=== PATIENT | male | born 1965 | race Caucasian/White ===

== ENCOUNTER 2016-11-25 15:00 | Inpatient (IN) | payer OTHER ==
--- NOTE | ~2016-11-25 | PN ---
Unit #: [id number] #: [id number] Patient: AMEYA SANCHEZ [id number] [facility] [address] [place] [address] [id number] MR#: [id number] NAME: AMEYA SANCHEZ ROOM: P185 Age: 51 Sex: M Admission Date: 11/25/2016 : 1965 Attending Physician: Raymon Lucas M.D. Admitting Physician: Raymon Lucas M.D. Primary Care Physician: Jarod Reynolds PROGRESS NOTES DATE OF SERVICE: 11/28/2016 SUBJECTIVE Mr. Sanchez is a 51-year-old white male, who was seen today and chart was reviewed and the case was discussed with the staff. He reports doing fairly well and appears to be coming out of the detox and also reports improvement in his depression and reports that he has an appointment with a heart doctor tomorrow that he would like to keep and he would like to consider discharge tomorrow. MENTAL STATUS EXAMINATION Middle-aged white male, who was casually dressed with fair personal hygiene, appears to be in no distress or discomfort. He was awake and alert on interaction with intact orientation. His mood was anxious with a congruent affect. He denies any suicidal or homicidal ideation. His insight and judgment remain slightly impaired. TREATMENT PLAN 1. We will continue him on his current medications and treatment protocol. We will monitor his response to the medications and make further adjustments as needed. 2. We will continue to follow up. Dictated by... Jarod Burciaga/mann TD: 11/28/2016 13:02 JOB #: [id number] [facility] PROGRESS NOTES Page 1 of 1 X Raymon Lucas MD PROGRESS NOTE
--- NOTE | ~2016-11-25 | HP ---
Unit #: [id number] #: [id number] Patient: AMEYA SANCHEZ [id number] [place] [address] [id number] MR#: [id number] NAME: AMEYA SANCHEZ ROOM: P185 Age: 51 Sex: M Admission Date: 11/25/2016 : 1965 Attending Physician: Raymon Lucas M.D. Admitting Physician: Raymon Lucas M.D. Primary Care Physician: Ameya Anaya M.D. HISTORY AND PHYSICAL HISTORY OF PRESENT ILLNESS Ameya is a 51-year-old male admitted on 11/25/2016 to [facility] for depression and psychosis. PAST MEDICAL HISTORY 1. Hypertension. 2. Chronic back pain. 3. Degenerative disk disease. 4. Hyperlipidemia. 5. Seasonal allergies. 6. GERD. PAST SURGICAL HISTORY History of appendectomy and a cyst removed from his neck. SOCIAL HISTORY Half pack cigarettes daily. Occasional alcohol use and occasional marijuana use. He is currently single and homeless. FAMILY HISTORY Noncontributory. REVIEW OF SYSTEMS CONSTITUTIONAL: No fever or chills. HEENT: Denies any sore throat, ear pain or runny nose. CARDIOVASCULAR: Denies chest pain, irregular heart rhythm or palpitations. CHEST: Denies shortness of breath or cough. No hemoptysis. GASTROINTESTINAL: Denies nausea, vomiting, diarrhea or chronic constipation. ENDOCRINE: Denies history of increased thirst or urination. No recent significant weight loss or gain. GENITOURINARY: Denies dysuria, frequency, or hematuria. SKIN: Denies any rashes. HEMATOLOGIC: Denies history of increased bleeding or bruising. MUSCULOSKELETAL: Denies any hot, swollen joints. No generalized muscle pain. NEUROLOGIC: Denies problems with vision or speech. No frequent, severe headaches. No numbness, tingling or weakness in any extremities. Denies loss of bladder or bowel control. CURRENT MEDICATIONS Unit #: [id number] #: [id number] Patient: AMEYA SANCHEZ 1. Fenofibrate. 2. Flomax. 3. Simvastatin. 4. Loratadine. 5. Vitamin D. 6. Omeprazole. 7. Aspirin. 8. Seroquel. ALLERGIES Ibuprofen. PHYSICAL EXAMINATION GENERAL: Alert, oriented, no acute distress. VITAL SIGNS: Blood pressure 152/94, heart rate 85, respirations 18, and temperature 98.5. HEIGHT: 5 feet 4 inches WEIGHT: 130 pounds. SKIN: Warm, dry. No rashes or lesions, track baeza, cuts, etc. HEENT: Normocephalic. TMs not viewed. Oronasal passages clear. Conjunctivae clear. PERRLA. EOM is intact. NECK: No lymphadenopathy or thyromegaly. HEART: Regular rate and rhythm. No murmur, gallop, or rub. LUNGS: Clear to auscultation bilaterally. ABDOMEN: Soft, nontender without palpable masses or hepatosplenomegaly. : Not assessed. EXTREMITIES: No evidence of cyanosis, clubbing, or edema. Moves all extremities independently without obvious deficit. NEUROLOGICAL: Grossly within normal limits. Cranial Nerves: II: Visual barrera are intact. III, IV AND : Extraocular movements are intact. Pupils are equal, round and reactive to light. V: Facial sensation is grossly normal. VII: Facial movements and expression are normal. VIII: Auditory acuity grossly intact. IX, X: Uvula is midline. Phonation is normal. XI: Patient shrugs shoulders and turns head normally. XII: Tongue protrudes in the midline. Sensory and Motor Function: Sensory and motor sensation is grossly normal. Motor: moves all extremities well. Coordination: Gait is normal. Deep Tendon Reflexes: Intact. IMPRESSION 1. Psychiatric admission. 2. Hypertension. 3. Chronic back pain. 4. Degenerative disk disease. 5. Hyperlipidemia. 6. Seasonal allergies. RECOMMENDATIONS PSYCHIATRIC: Per psychiatrist. MEDICAL: No contraindication to participating in this facility's activities. MEDICAL PROGNOSIS Good. MEDICAL CONDITION Stable. Unit #: [id number] #: [id number] Patient: AMEYA SANCHEZ Dictated by... Amy Landa TD: 11/26/2016 15:19 JOB #: [id number] HISTORY AND PHYSICAL Page 1 of 1 X ERICK GONZALEZ APRN HISTORY AND PHYSICAL
--- NOTE | ~2016-11-25 | PN ---
Unit #: [id number] #: [id number] Patient: AMEYA SANCHEZ [id number] [facility] [address] [place] [address] [id number] I MR#: [id number] NAME: AMEYA SANCHEZ ROOM: P185 Age: 51 Sex: M Admission Date: 11/25/2016 : 1965 Attending Physician: Raymon Lucas M.D. Admitting Physician: Raymon Lucas M.D. Primary Care Physician: Jarod Reynolds PROGRESS NOTES DATE OF SERVICE: 11/26/2016 SUBJECTIVE Mr. Sanchez is a 51-year-old white male, who was seen today and chart was reviewed and the case was discussed with the staff. He was seen to be anxious and withdrawn and in distress and discomfort and reports persistent depressive symptoms. Meanwhile, he has not shown any agitation or aggression. He has been taking the medications and tolerating them fairly well. MENTAL STATUS EXAMINATION Middle-aged white male, who was casually dressed with marginal personal hygiene, appears to be in distress and discomfort. He was awake and alert on interaction with intact orientation. His mood was anxious with a congruent affect. He denies any suicidal or homicidal ideation. His insight and judgment remain slightly impaired. TREATMENT PLAN 1. We will continue him on his current medications and treatment protocol. We will monitor his response to the medications and make further adjustments as needed. 2. We will continue to follow up. Dictated by... Jarod Burciaga/mann TD: 11/27/2016 18:21 JOB #: [id number] [facility] PROGRESS NOTES Page 1 of 1 X Raymon Lucas MD PROGRESS NOTE
--- NOTE | ~2016-11-25 | DS ---
Unit #: [id number] #: [id number] [facility]: [facility] [id number] [facility] [address] [place] [address] [id number] I MR#: [id number] NAME: AMEYA SANCHEZ ROOM: [facility] Age: 51 Sex: M Admission Date: 11/25/2016 : 1965 Discharge Date: 11/29/2016 Attending Physician: Raymon Lucas M.D. Primary Care Physician: Ameya Anaya M.D. DISCHARGE SUMMARY IDENTIFYING DATA Mr. Sanchez is a 51-year-old white male who is a resident of [place], [place], and was self-referred to the hospital accompanied by his mother. DISCHARGE DIAGNOSES Psychiatric: Major depressive disorder, recurrent, moderate, with psychosis; alcohol dependence, moderate and acute withdrawals. Medical: Hypertension, dyslipidemia, and gastroesophageal reflux disease. Stressors: Moderate psychosocial stressors. HISTORY OF PRESENT ILLNESS Please see initial psychiatric evaluation for details. PAST PSYCHIATRIC HISTORY Please see initial psychiatric evaluation for details. PAST MEDICAL HISTORY Please see initial psychiatric evaluation for details. HOSPITAL COURSE The patient was admitted to the adult chemical dependency unit at [facility] and was oriented to the hospital environment. Routine p.r.n. medications were initiated, and he was started on the detox protocol and was also started back on his home medications including Celexa and Seroquel, and was closely monitored. He was taking the medications regularly and was tolerating them fairly well and was able to show a decent and therapeutic response, and was able to come out of the detox without any complications and was willing to continue treatment on an outpatient basis and as such, it was decided that he will be kept on his current medications and will be discharged home, and will continue treatment on an outpatient basis. DISCHARGE MEDICATIONS Celexa 20 mg a day for depression and Seroquel 100 mg at bedtime for depression. DISCHARGE CONDITION Stable. PROGNOSIS Fair. Unit #: [id number] #: [id number] Patient: AMEYA SANCHEZ Dictated by... Jarod Burciaga/maryl TD: 11/29/2016 18:51 JOB #: [id number] DISCHARGE SUMMARY Page 1 of 1 X Raymon Lucas MD DISCHARGE SUMMARY
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
--- NOTE | ~2016-11-25 | PN ---
Unit #: [id number] #: [id number] Patient: AMEYA SANCHEZ [id number] [facility] [address] [place] [address] [id number] I MR#: [id number] NAME: AMEYA SANCHZE ROOM: [facility] Age: 51 Sex: M Admission Date: 11/25/2016 : 1965 Attending Physician: Raymon Lucas M.D. Admitting Physician: Raymon Lucas M.D. Primary Care Physician: Jarod Reynolds PROGRESS NOTES DATE 11/27/2016 DISCUSSION mood disorder was seen today and chart was reviewed and case was discussed with the staff. The patient seemed to be anxious, withdrawn, unkempt, disheveled and seclusive to himself. Meanwhile, he has been cooperative with the treatment recommendations. He has been taking the medication and tolerating them fairly well with no reported side effects. MENTAL STATUS EXAM Middle-aged white male who was casually dressed with fair personal hygiene, appears to be in no acute distress or discomfort. He was awake and alert on interaction with intact orientation. His mood was anxious with congruent affect. He denies any suicidal or homicidal ideation. Also, denies any auditory or visual hallucinations. His insight and judgement remains slightly impaired. TREATMENT PLAN 1. We will continue him on his current medications and treatment protocol. We will monitor his response to the medication and make further adjustments as needed. 2. We will continue to follow up. Dictated by... Jarod Burciaga/joselito TD: 11/28/2016 04:43 JOB #: [id number] Unit #: [id number] #: [id number] Patient: AMEYA SANCHEZ PROGRESS NOTES Page 1 of 1 X Raymon Lucas MD PROGRESS NOTE
[2016-11-26 14:11] LABS: BASOPHIL# 0.1 X10e3 (0-0.3); EOSINOPHIL# 0.3 X10e3 (0-0.7); EOSINOPHIL% 3.1 % (0.0-7.0); HEMATOCRIT 43.4 % (38.0-50.0); HEMOGLOBIN 14.5 gm/dL (13.0-16.0); LYMPHOCYTE# 2.9 X10e3 (1.0-3.5); LYMPHOCYTE% 25.7 % (17.0-45.0); MEAN CELL VOLUME 91.4 FL (83-96); MEAN CORPUSCULAR HEMOGLOBIN 30.5 PG (28-34); MEAN CORPUSCULAR HGB CONC 33.3 g/dL (30-36); MEAN PLATELET VOLUME 8.5 FL (6.5-11.5); MONOCYTE# 0.8 X10e3 (0-1.0); MONOCYTE% 7.6 % (3.0-12.0); NEUTROPHIL% 62.6 % (40-75); PLATELET COUNT 237 X10e3 (140-420); RED BLOOD COUNT 4.75 X10e (3.90-5.60); RED CELL DISTRIBUTION WIDTH 14.1 % (11.0-15.5); WHITE BLOOD COUNT 11.1 X10e3 (4.0-10.5)
[2016-11-26 14:16] LABS: DIFF IND NO
[2016-11-26 14:47] LABS: ALBUMIN SERUM 3.7 g/dL (3.5-5.0); BILIRUBIN,TOTAL 0.3 mg/dL (0.2-2.0); BUN/CREATININE RATIO 18.33; CALCIUM SERUM 9.4 mg/dL (8.4-10.2); CREATININE SERUM 1.2 mg/dL (0.6-1.4); GLOM FILT RATE Estimated 69.1 mL/min (>60); POTASSIUM 3.8 mmol/L (3.5-5.1); PROTEIN TOTAL SERUM 6.6 g/dL (6.0-8.3)
[2016-11-29 12:31] LABS: URINE APPEARANCE CLEAR; URINE BILIRUBIN NEG (NEG); URINE BLOOD NEG (NEG); URINE COLOR YELLOW; URINE GLUCOSE NEG (NEG); URINE KETONE NEG (NEG); URINE LEUKOCYTE ESTERASE NEG (NEG); URINE NITRATE NEG (NEG); URINE PROTEIN NEG (NEG); URINE SPECIFIC GRAVITY 1.012 (1.003-1.035); URINE UROBILINOGEN 0.2 MG/DL (NEG)
[2016-11-29 13:13] LABS: AMPHETAMINE NEG (NEG); BARBITURATES NEG (NEG); BENZODIAZEPINES NEG (NEG); COCAINE NEG (NEG); MARIJUANA POS (NEG); OPIATES NEG (NEG); TRICYCLIC ANTIDEPRESSANTS POS (NEG); U METHADONE NEG (NEG)
== END 2016-11-29 09:57 | DRG 885 ==
LOC: P1E 15:25
PROVIDERS: Psychiatry & Neurology Psychiatry
PROC: HZ2ZZZZ Detoxification Services for Substance Abuse Treatment (ICD-10-PCS; principal; 2016-11-25)
DX: F33.1 Major depressive disorder, recurrent, moderate (principal); F39 Unspecified mood [affective] disorder; F10.239 Alcohol dependence with withdrawal, unspecified; F29 Unspecified psychosis not due to a substance or known physiological condition; E78.5 Hyperlipidemia, unspecified; K21.9 Gastro-esophageal reflux disease without esophagitis; F17.210 Nicotine dependence, cigarettes, uncomplicated; Z59.0 Homelessness; Z79.82 Long term (current) use of aspirin
CPT/HCPCS: 80053; 80307; 81003; 85025